=== PATIENT | female | born 2000 | race Two or more races ===

== ENCOUNTER → 2024-08-22 | Outpatient (CLI) | payer BC ==
[2024-08-22 07:28] LABS: Urine Bacteria None Seen /hpf (None Seen)
[2024-08-22 08:25] LABS: Basophils # (auto) 0 10 ^3/uL (0-0.2); Basophils % (auto) 0.6 % (0.0-2.0); Eosinophils # (auto) 0.2 10 ^3/uL (0-0.8); Eosinophils % (auto) 4.2 % (0.0-7.0); Hematocrit 40.3 % (36.0-46.0); Hemoglobin 13.9 g/dL (12.2-16.2); Lymphocytes # (auto) 1.8 10 ^3/uL (0.4-5.4); Lymphocytes % (auto) 35.7 % (10.0-50.0); Mean Corpuscular Hemoglobin 30.6 pg (28.0-32.0); Mean Corpuscular Hgb Conc. 34.6 g/dL (32.0-36.0); Mean Corpuscular Volume 88.4 fL (80.0-100.0); Monocytes # (auto) 0.4 10 ^3/uL (0-1.3); Monocytes % (auto) 7.9 % (0.0-12.0); Neutrophils # (auto) 2.6 10 ^3/uL (1.6-8.6); Neutrophils % (auto) 51.6 % (37.0-80.0); Nucleated Red Blood Cells % 0.1 %; Platelet Count (auto) 342 10^3/uL (140-450); Red Blood Cells 4.56 10^6/uL (4.0-5.20); Red Cell Distribution Width 13.1 % (11.8-14.3); White Blood Cell 5.1 10^3/uL (4.4-10.8)
[2024-08-22 08:33] LABS: Urine Blood 3+ /uL (Negative); Urine Clarity Clear (Clear); Urine Color Light-Yellow (Yellow); Urine Mucus FEW (None Seen); Urine Protein, UAD Negative (Negative); Urine Specific Gravity 1.022 (1.001-1.035); Urine Squamous Epithelial Cell FEW /hpf (<5); Urine Urobilinogen Normal (Negative); Urine WBC 1 /HPF (0-5); Urine pH 5.5 (5.0-9.0)
[2024-08-22 08:55] LABS: Alanine Aminotransferase 23 U/L (7-40); Albumin 4.4 g/dL (3.2-4.8); Alkaline Phosphatase 73 U/L (46-116); Anion Gap 11 (5-15); Aspartate Aminotransferase 18 U/L (13-40); BUN/Creatinine Ratio 14.5 (10.0-20.0); Bilirubin, Total 0.4 mg/dL (0.2-1.0); Blood Urea Nitrogen 9 mg/dL (9-23); Calcium 9.8 mg/dL (8.7-10.4); Carbon Dioxide 23 mmol/L (20-31); Cholesterol 121 mg/dL (< 200); Glucose 106 mg/dL (74-106); LDL Cholesterol 76 mg/dL (< 100); Sodium 142 mmol/L (136-145); Total Protein 7.1 g/dL (5.7-8.2); Triglycerides 97 mg/dL (< 150)
[2024-08-22 08:58] LABS: Chloride 108 mmol/L (98-107); HDL Cholesterol 39 mg/dL (40-59)
== END | disposition home or self-care (01) ==
LOC: LAB 07:12
PROVIDERS: ATTEND Internal Medicine
DX: Z00.01 Encounter for general adult medical examination with abnormal findings (principal); Z83.3 Family history of diabetes mellitus
CPT/HCPCS: 36415; 80053; 80061; 81001; 83036; 84439; 84443; 85025

== ENCOUNTER 2025-01-06 08:48 | Day surgery (SDC) | payer BC ==
[2025-01-04 09:10] LABS: Hematocrit 41.4 % (36.0-46.0); Hemoglobin 14.2 g/dL (12.2-16.2); Mean Corpuscular Hemoglobin 30.2 pg (28.0-32.0); Mean Corpuscular Volume 87.8 fL (80.0-100.0); Nucleated Red Blood Cells % 0.0 %
[2025-01-04 09:30] LABS: INR 1.03 (0.9-1.15); Partial Thromboplastin Time 30.3 SEC (24.5-34.5); Prothrombin Time 10.9 sec (9.3-11.8)
[2025-01-04 09:44] LABS: Alanine Aminotransferase 21 U/L (7-40); Albumin 4.5 g/dL (3.2-4.8); Alkaline Phosphatase 70 U/L (46-116); Anion Gap 11 (5-15); BUN/Creatinine Ratio 11.1 (10.0-20.0); Bilirubin, Total 0.5 mg/dL (0.2-1.0); Calcium 9.0 mg/dL (8.7-10.4); Carbon Dioxide 22 mmol/L (20-31); Glucose 99 mg/dL (74-106); Potassium 4.2 mmol/L (3.5-5.1); Sodium 142 mmol/L (136-145); Total Protein 7.3 g/dL (5.7-8.2)
[2025-01-04 10:10] LABS: Blood Urea Nitrogen 7 mg/dL (9-23); Chloride 109 mmol/L (98-107)
[~2025-01-06] VITALS: Ht 154.9 cm; Wt 62.6 kg
[~2025-01-06 08:48] MED LIST: BACI1CHW PO; MULT-1018 PO
[2025-01-06] MEDS: fentaNYL CITRATE 100 MCG/2 ML VL ONE (09:58)
[2025-01-06] MEDS: MIDAZOLAM HCL 2MG/2ML 2ml VIAL (1mg/ml) ONE (09:58)
--- NOTE | 2025-01-06 10:10 | DVHNC2 ---
Procedure - DATE OF SERVICE: 2024 PROCEDURE PERFORMED BY: Gabriele Cole MD REFERRING PROVIDER: Jeanne Andrade MD PROCEDURE PERFORMED: 1. Esophagogastroduodenoscopy with moderate sedation 2. Esophagogastroduodenoscopy with biopsy PREPROCEDURE DIAGNOSIS: 1. Epigastric abdominal pain 2. GERD. POSTPROCEDURE DIAGNOSIS: 1. Mild gastritis, biopsies 2. Normal duodenum 3. Mild erosive esophagitis Z-line at 35 cm INDICATION FOR PROCEDURE: The patient is a 24-year-old female who presents for outpatient endoscopy for GERD and epigastric abdominal pain MEDICATIONS USED: 6 mg of Versed IV and 100 mcg of fentanyl IV DETAILS OF THE PROCEDURE: Informed consent was obtained after risks, benefits, and alternatives, were discussed at length with the patient, the patient gave consent to the procedure as well as a medication used for sedation. The patient was brought into the GI suite and placed in the left lateral decubitus position. An Olympus endoscope was inserted into the oropharynx and advanced into the esophagus, then into the stomach, then into the duodenal bulb and duodenum. The duodenal bulb and duodenum were normal. Biopsies were taken and sent for pathology. The scope was then withdrawn. The patient had [id number] gastritis. Biopsies were taken I will be sent for pathology. Retroflexion showed no abnormalities. The scope was then withdrawn. The Z-line was at 38 cm. The patient had mild erosive esophagitis. Scope was then withdrawn and the procedure completed. The patient tolerated the procedure well. IMPRESSION: 1. Mild erosive esophagitis and mild nonerosive gastritis. Differential diagnosis includes nonulcer dyspepsia, versus IBS versus SIBO versus other etiology RECOMMENDATIONS: 1. Anti-reflux precautions 2. Proton pump inhibitor daily, 30 minutes before breakfast, may use H2 like famotidine for breakthrough 3. Follow up in GI clinic for procedure and pathology results 4. Follow up with primary care physician ana 5. Consider further workup and imaging I would like to thank Dr. Andrade for this referral GABRIELE COLE MD Jan 06, 2025 10:10
[2025-01-06 10:11] VITALS: PULSE 88; RESP 16; TEMP 98.4; O2SAT 98
[2025-01-06 10:36] VITALS: BP 119/76; PULSE 77; RESP 16; O2SAT 100
== END 2025-01-06 10:50 | disposition home or self-care (01) ==
LOC: GI 08:48
PROVIDERS: ATTEND Specialist
DX: R10.13 Epigastric pain (principal); K29.50 Unspecified chronic gastritis without bleeding; K21.9 Gastro-esophageal reflux disease without esophagitis
CPT/HCPCS: 36415; 43239; 80053; 81025; 85025; 85610; 85730; 88305; 88342; J2250; J3010